=== PATIENT | male | born 1990 | race Hispanic/Latino ===

== ENCOUNTER 2025-01-04 17:56 | Inpatient (IN) | payer BC, SELFPAY ==
[2025-01-04] MEDS ORDERED: Ondansetron PF 4 MG/2 ML Vial IVP PRN (19:51)
[2025-01-04] MEDS ORDERED: Acetaminophen 325 MG TAB PO PRN (19:51)
[2025-01-04 20:02] VITALS: BMI 33.7
[2025-01-04] MEDS: Famotidine/PF 20 mg/2ml Vial SLOW IVP SCH (22:11)
[2025-01-05 05:24] LABS: #Basophils 0.03 10x3/uL (0.0-0.2); #Eosinophils 0.19 10x3/uL (0.0-0.5); #Monocytes 0.71 10x3/uL (0.0-1.1); #Neutrophils 6.77 10x3/uL (1.5-8.4); %Basophils 0.3 % (0.0-2.0); %Eosinophils 2.0 % (0.0-6.0); %Lymphocytes 16.0 % (18.0-47.0); %Monocytes 7.6 % (0.0-10.0); %Neutrophils 72.8 % (40.0-75.0); Hematocrit 31.1 % (38.8-50.0); Hemoglobin 10.5 g/dL (13.5-17.5); Mean Corpuscular Hemoglobin 30.6 pg (27.0-33.0); Mean Corpuscular Volume 90.7 fL (81.2-95.1); Platelet Count 280 10x3/uL (150-450); Red Blood Cell (RBC) Count 3.43 10x6/uL (4.32-5.72); White Blood Cell (WBC) Count 9.31 10x3/uL (3.5-10.5)
[2025-01-05 05:39] LABS: ALT (SGPT) 60 U/L (Less than 45); AST (SGOT) 24 U/L (11-34); Albumin 2.8 g/dL (3.1-4.5); Alkaline Phosphatase 121 U/L (40-110); Anion Gap 10 mmol/L (10-20); BUN (Urea Nitrogen) 10 mg/dL (8.9-20.6); Bilirubin, Total 1.0 mg/dL (0.3-1.2); Calc. Creatinine Clearance 158 mL/min (70-130); Calcium 8.7 mg/dL (7.8-10.44); Carbon Dioxide 24 mmol/L (22-29); Chloride 108 mmol/L (98-107); Globulin 3.8 g/dL (2.4-3.5); Glucose 96 mg/dL (70-105); Potassium 3.7 mmol/L (3.5-5.1); Sodium 138 mmol/L (136-145)
[2025-01-05] MEDS: Ciprofloxacin 500 MG TAB PO SCH ×2 (09:23→20:38)
[2025-01-05] MEDS: Enoxaparin 40 MG (0.4 mL) SYRINGE SC SCH (09:23)
[2025-01-05] MEDS: metroNIDAZOLE 500 MG TAB PO SCH (14:27)
[2025-01-06 12:35] VITALS: BP 124/69; TEMP 97.7
== END 2025-01-06 13:42 | disposition home or self-care (01) | DRG 392 ==
LOC: CSHTELE 19:36
PROVIDERS: ADMIT Internal Medicine; ATTEND Family Medicine
DX: K57.20 Diverticulitis of large intestine with perforation and abscess without bleeding (principal); F17.210 Nicotine dependence, cigarettes, uncomplicated; E66.9 Obesity, unspecified; F10.10 Alcohol abuse, uncomplicated; Z79.899 Other long term (current) drug therapy
CPT/HCPCS: 36415; 80053; 83605; 85025; 87040; J0692; J1650; J7030

== ENCOUNTER 2025-03-19 10:31 | Day surgery (SDC) | payer BC ==
[2025-03-12 15:33] VITALS: BMI 28.7
[2025-03-19] MEDS ORDERED: PROPOFOL 60 ML ONE (10:57)
== END 2025-03-19 13:40 | disposition home or self-care (01) ==
LOC: CSHSDC 10:31
PROVIDERS: ATTEND Surgery
PROC: 0DJD8ZZ Inspection of Lower Intestinal Tract, Via Natural or Artificial Opening Endoscopic (ICD-10-PCS; principal; 2025-03-19)
DX: Z12.11 Encounter for screening for malignant neoplasm of colon (principal); K57.30 Diverticulosis of large intestine without perforation or abscess without bleeding
CPT/HCPCS: J2250; J2704